=== PATIENT | male | born 1990 | race Caucasian/White ===

== ENCOUNTER 2017-06-11 20:03 | Emergency (ER) | payer SELFPAY ==
--- NOTE | 2017-06-11 20:31 | UC ---
Bite Injury/Animal HPI - HPI Summary HPI Summary: At about 11:30 am today, pt was at work delivering the mail. He was obtaining a signature when the home owners 3 dogs came out. He notes the dogs were small and one of them bit him. Pt did clean the site shortly after and his clothing was not torn by the bite(no direct contact to pt skin). his last tetanus shot was about 4 years ago. he did not report injury to his employer or the health dept. no fever or redness to site. - History of Current Complaint Stated Complaint: DOG BITE, RIGHT LEG Time Seen by Provider: 06/11/17 20:06 Hx Obtained From: Patient Onset/Duration: Sudden Onset Type of Bite: Animal - dog Has Animal Been Immunized?: Unknown Character: Abrasion/Laceration Aggravating Factor(s): Nothing Alleviating Factor(s): Nothing Associated Signs And Symptoms: Negative: Fever, Erythema, Swelling Animal Available for Observation: Yes Animal Control Notified: No - Allergies/Home Medications Allergies/Adverse Reactions: Allergies Allergy/AdvReac Type Severity Reaction Status Date / Time No Known Allergies Allergy Verified 06/11/17 20:34 PMH/Surg Hx/FS Hx/Imm Hx Previously Healthy: Yes - Surgical History Surgical History: Yes Surgery Procedure, Year, and Place: Giant Cell Tumor Right Forearm; plate a bone in, 2006 - Social History Occupation: Employed Full-time Alcohol Use: "a couple times a week ... two or three" Substance Use Type: None Smoking Status (MU): Never Smoked Tobacco - Immunization History Hx Tetanus, Diphtheria Vaccination: Yes Review of Systems Constitutional: Negative Skin: Other - abrasion to R leg Eyes: Negative ENT: Negative Respiratory: Negative Cardiovascular: Negative Gastrointestinal: Negative Genitourinary: Negative Motor: Negative Neurovascular: Negative Musculoskeletal: Negative Neurological: Negative Psychological: Negative Is Patient Immunocompromised?: No All Other Systems Reviewed And Are Negative: Yes Physical Exam Triage Information Reviewed: Yes Appearance: Well-Appearing Vital Signs Reviewed: Yes Eyes: Positive: Conjunctiva Clear ENT: Positive: Normal ENT inspection Neck: Positive: Supple, Nontender, No Lymphadenopathy Respiratory: Positive: Lungs clear, Normal breath sounds Cardiovascular: Positive: RRR, No Murmur Abdomen Description: Positive: Nontender, No Organomegaly, Soft Bowel Sounds: Positive: Present Musculoskeletal: Positive: ROM Intact Neurological: Positive: Alert Psychological: Positive: Age Appropriate Behavior Skin Exam: Other - Abrasion to RLE. No bleeding, swelling or erythema. Old scar noted R lower lateral leg. No bony deformity or tenderness. Normal gait. s/v/m intact to RLE. Procedures - Procedure Summary Procedure Summary: Wound cleaned by nursing staff. I applied bacitracin. Bite Injury Course/Dx - Course Course Of Treatment: wound c/w abrasion from the bite. pt clothing remained intact. occured about 9 hours ago and no s/s's of infection. po antibiotic not indicated. - Differential Dx/Diagnosis Provider Diagnoses: Abrasion from dog bite RLE Discharge - Sign-Out/Discharge Documenting (check all that apply): Discharge - Discharge Plan Condition: Stable Disposition: HOME Patient Education Materials: Animal Bite (ED) Referrals: LOPEZ Yusuf [Medical Doctor] - 5 Days - Billing Disposition and Condition Condition: STABLE Disposition: HOME
[2017-06-11 20:34] VITALS: BP 156/77
== END 2017-06-11 20:52 | disposition home or self-care (01) ==
LOC: UCCORT 20:03
DX: S80.811A Abrasion, right lower leg, initial encounter (principal); W54.0XXA Bitten by dog, initial encounter; Y93.89 Activity, other specified; Y92.008 Other place in unspecified non-institutional (private) residence as the place of occurrence of the external cause; Y99.0 Civilian activity done for income or pay
CPT/HCPCS: 99212; G0463